=== PATIENT | male | born 1980 | race African-American/Black ===

== ENCOUNTER 2021-03-19 11:13 | Emergency (ER) ==
[2021-03-19] MEDS ORDERED: cefTRIAXone\\ROCEPHIN 500 MG VIAL ONE (12:51)
[2021-03-19] MEDS ORDERED: Azithromycin 250 MG TAB ONE (12:51)
[2021-03-22 09:15] LABS: Chlam.trachomatis by PCR,Urine DETECTED (NotDetected)
== END 2021-03-19 13:30 | disposition home or self-care (01) ==
LOC: CSHERS 11:13
DX: R36.9 Urethral discharge, unspecified (principal)
CPT/HCPCS: 87491; 87591; 96372; 99283; J0696